=== PATIENT | male | born 1995 | race Caucasian/White ===

== ENCOUNTER → 2019-05-27 | Outpatient (CLI) | payer MEDICAID | LOC: CARD 12:52 | PROVIDERS: ATTEND Internal Medicine Cardiovascular Disease | DX: I45.10 Unspecified right bundle-branch block (principal); F90.1 Attention-deficit hyperactivity disorder, predominantly hyperactive type; R94.31 Abnormal electrocardiogram [ECG] [EKG] | CPT/HCPCS: 93306; 93351 ==